=== PATIENT | male | born 1970 | race African-American/Black ===

== ENCOUNTER 2019-08-16 15:01 | Emergency (ER) | payer BC, MEDICAID ==
--- OUTSIDE RECORDS SUMMARY | 2019-08-16 15:07 | XMS REPORT | Continuity of Care Document ---
:1970 External Reference #:[id number] Author Name Therese Oliva PA Address [address] [place] [address] Care Team Providers Name Role Phone Therese Oliva Care Team Information Post Office Clerk Unavailable Tulio Stevens MD - Gastroenterology Care Team Information Post Office Clerk El Abner Dugan DR - Pulmonary Care Team Information Post Office Clerk [phone] Disease Problems Active Problems Provider Date Chronic obstructive lung disease Therese Oliva PA Onset: 05/07/2018 Anxiety Therese Oliva PA Onset: 05/07/2018 Gastroesophageal reflux disease Therese Oliva PA Onset: 05/07/2018 Atypical chest pain Therese Oliva PA Onset: 05/07/2018 Note: hx negative cardiac work up Psychogenic impotence Therese Oliva PA Onset: 05/06/2018 Cigarette smoker Therese Oliva PA Onset: 05/07/2018 Obstructive sleep apnea syndrome Therese Oliva PA Onset: 05/16/2018 History of lung lobectomy Therese Oliva PA Onset: 07/15/2018 Note: left side Social History Type Date Description Comments Sex Unknown ETOH Use Denies alcohol use Tobacco Use Start: Unknown Heavy tobacco smoker (more than 10 cigarettes/day) Recreational Drug Use Former Drug User Smoking Status Reviewed: 07/15/18 Heavy tobacco smoker (more than 10 cigarettes/day) Smoke Alarms Yes Allergies, Adverse Reactions, Alerts Description No Known Drug Allergies Medications Active Medications SIG Qnty Indications Ordering Date Provider Ibuprofen 1 by mouth three 60tabs Dima Gomes, 06/15/2019 800mg Tablets times a day as MD needed for pain Sildenafil Citrate take 1 to 2 tablets 6tabs N52.9 Dima Gomes, 2018 50mg by mouth 1 hour MD Tablets before intercourse Probiotic Acidophilus 1 po qd-otc Dima Gomes, 01/07/2019 MD Capsules Ventolin HFA 1-2 puffs every 4-6 8gm J44.9 Dima Gomes, 05/06/2018 hours as needed for MD 108(90Base) mcg/Act sob/wheeze Aerosol Symbicort 2 puffs twice a day 6gm J44.9 Dima Gomes, 05/06/2018 160-4.5mcg/Act Aerosol Acetaminophen 1-2 tabs every 6 Unknown 325mg hours as needed Tablets pain -OTC Omeprazole 1 by mouth bid as K21.9 Unknown 40mg needed Capsules DR History Medications Flagyl 1 tab by mouth 30tabs Dima Gomes MD 03/10/2019 - 500mg Tablets three times daily x 03/20/2019 10 days, no Etoh on med or 48 after finished. Tadalafil 1 tab by mouth 14tabs Dima Gomes MD 02/24/2019 - 10mg 30mins prior to 03/22/2019 Tablets sexual activity Flagyl 1 tab by mouth bid Unknown 02/14/2019 - 500mg Tablets x 5 days 02/19/2019 Vancomycin HCL 1 tab four times a Unknown 02/14/2019 - 125mg day x 10 days 02/24/2019 Capsules Medications Administered in Office Medication SIG Qnty Indications Ordering Provider Date Depo Medrol 40 MG Therese Oliva PA 10/29/2018 Injection Immunizations CPT Code Status Date Vaccine Lot # [id number] Given 07/23/2018 Pneumococcal 23 Immunization Adult Or [id number] Immunosuppressed Patient 41236 Given 05/06/2018 Tdap (Adacel) Ages 7 And Above Only [id number] Refused 08/11/2019 Influenza Vac, Quadrivalent, Split, 0.5mL Dosage, Im Use [id number] Refused 07/23/2018 Influenza Vac, Quadrivalent, Split, 0.5mL Dosage, Im Use 70196 Refused 05/06/2018 Influenza Vac, Quadrivalent, Split, 0.5mL Dosage, Im [id number] Use [id number] Refused 05/06/2018 Influenza Vac, Quadrivalent, Split, 0.5mL Dosage, Im Use Vital Signs Date Vital Result Comment 08/11/2019 2:10pm Body Temperature 97.6 F tympanic Weight 229.12 lb w/boots Heart Rate 80 /min BP Systolic 102 mmHg L Arm, Sitting BP Diastolic 76 mmHg L Arm, Sitting 02/24/2019 1:57pm Body Temperature 98.0 F tympanic Weight 229.00 lb w/shoes Heart Rate 110 /min BP Systolic 102 mmHg L Arm, LRG Cuff, Sitting BP Diastolic 78 mmHg L Arm, LRG Cuff, Sitting Height 71.50 inches 5'11.50" BMI (Body Mass Index) 31.5 kg/m2 Results Test Acquired Date Facility Test Result H/L Range Note Laboratory test 03/08/2019 [facility] Stool Culture SEE RESULT 1, 2 finding BELOW 1 [id number] Verbal to EMILIE CROWELL RN by [id number] at 0813 on 03/09/19. 2 SEE RESULT BELOW Name: LEONOR BEYER SR : [address]: Dima Gomes MD Acct: [id number] Unit: [id number] AGE: 48 Location: [facility] Re03/08/19 SEX: M Status: REG REF SPEC: [id number] SANDRA: 03/08/19-[address]: Dima Gomes MD REQ: [id number] RECD: 03/08/19 STATUS: COMP _ SOURCE: STOOL SPDESC: ORDERED: Stool Culture COMMENTS: [id number] Verbal to EMILIE CROWELL RN by at 0813 on 03/09/19. Procedure Result Reported Site Stool Culture Final 03/10/19- 1125 ML Result No enteric pathogens isolated Testing for Salmonella, Shigella, Aeromonas, Plesiomonas, Yersinia and Campylobacter are included in a Stool Culture. Vibrio spp not routinely tested for in a stool culture. If testing is desired, please request specifically when placing test order. Sensitivities not routinely performed on stool isolates, as antibiotics may prolong the carriage rate of bacteria. Please contact the microbiology lab if sensitivities are required. Shiga Toxin 1 2 Final 03/09/19- 1257 ML Organism 1 Negative Shiga Toxin 1 2 Immunochromatographic Assay * ML - Main Lab . END OF REPORT DEPARTMENT OF PATHOLOGY, [address] [place] [id number] Prem Hutson M.D. Director [facility] # [id number] Procedures Description No Information Available Medical Devices Description No Information Available Encounters Description No Information Available Assessments Date Code Description Provider 08/11/2019 Z00.00 Encounter for general adult medical Therese Oliva PA examination without abnormal findings 08/11/2019 J44.9 Chronic obstructive pulmonary disease, Therese Oliva PA unspecified 08/11/2019 K21.9 Gastro-esophageal reflux disease without Therese Oliva PA esophagitis 08/11/2019 G47.33 Obstructive sleep apnea (adult) Therese Oliva PA (pediatric) 08/11/2019 Z13.31 Encounter for screening for depression Therese Oliva PA 08/11/2019 Z12.5 Encounter for screening for malignant Therese Oliva PA neoplasm of prostate 02/24/2019 K57.32 Diverticulitis of large intestine without Therese Oliva PA perforation or abscess without bleeding 02/24/2019 A04.72 Enterocolitis due to Clostridium Therese Oliva PA difficile, not specified as recurrent 02/24/2019 Z68.31 Body mass index (BMI) 31.0-31.9, adult Therese Oliva PA Plan of Treatment 08/11/2019 - Therese Oliva, PAZ00.00 Encounter for general adult medical examination without abnormal findingsNew Labs:CMP & CBC, Ordered: Lipid And LDL/HDL, Ordered: 08/11/19Comments:Routine health maintenance and preventive care discussed. Update screenings and immunizations as below. Encouraged dental and vision examsFollow up:1 year CPE [id number] Chronic obstructive pulmonary disease, unspecifiedComments:reviewed medication with patient, he is to use symbicort bid daily, ventolin is as needed. samples and copay card given to [id number] Gastro-esophageal reflux disease without esophagitisComments:managed by GI, doing well without medication at this time.G47.33 Obstructive sleep apnea (adult) (pediatric)Comments:wears CPAP kspqmbcC50.31 Encounter for screening for depressionComments:Up to 15 min spent on depression screening. Staff-assisted depression care supports are in place toassure accurate diagnosis, effective treatment and follow-up as needed. Patient screened negative for depression at today's visit.Z12.5 Encounter for screening for malignant neoplasm of prostateNew Labs:PSA - FCMG, Ordered: Comments:risks and benefits of screening reviewed with patient, as indicated by age, patient agreeable to testing. Functional Status Description No Information Available Mental Status Description No Information Available Referrals Refer to Reason for Referral Status Appt Date [facility]Radiology PT RESCHEDULED APPT FOR 07/12/19 @ Closed 07/02 11:15 AT [facility] APPT SCHED FOR 06/18/19 @ 11:15AM [facility] MA[place]ED APPT INFO AUTH#[id number] EXP 07/09/[address] [place] [address] [address] [place], [place] [phone]
[2019-08-16 15:35] VITALS: BP 123/84
[2019-08-16] MEDS ORDERED: Ketorolac INJ* 30 MG/ML 1 ML VIAL IM ONE (16:17)
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
== END 2019-08-16 16:40 | disposition home or self-care (01) ==
LOC: UCCORT 15:01
DX: M54.32 Sciatica, left side (principal); J44.9 Chronic obstructive pulmonary disease, unspecified; F17.210 Nicotine dependence, cigarettes, uncomplicated; Z79.51 Long term (current) use of inhaled steroids
CPT/HCPCS: 96372; 99212; G0463; J1885